=== PATIENT | male | born 1995 | race African-American/Black ===

== ENCOUNTER 2019-01-18 20:39 | Emergency (ER) | payer OTHER ==
[~2019-01-18] VITALS: Ht 170.2 cm; Wt 60.3 kg
[2019-01-18 21:30] VITALS: BP 147/77
== END 2019-01-18 21:31 | disposition home or self-care (01) ==
LOC: M.ERS 20:39
DX: Z20.2 Contact with and (suspected) exposure to infections with a predominantly sexual mode of transmission (principal)